=== PATIENT | male | born 1940 | race Caucasian/White ===

== ENCOUNTER 2018-07-25 11:09 | Day surgery (SDC) | payer MEDICARE, BC ==
[~2018-07-25] VITALS: Ht 172.7 cm; Wt 61.4 kg
[2018-07-25 11:26] LABS: HEMATOCRIT 48.4 % (42.0-54.0); HEMOGLOBIN 16.3 g/dL (13.5-17.5); MCH 31.8 pg (26.0-34.0); MCHC 33.7 g/dL (31.0-37.0); MCV 94.5 fL (80.0-100.0); MEAN PLATELET VOLUME 10.8 fL (7.4-10.4); RBC 5.12 10x6/uL (4.20-6.10); RDW 13.1 % (11.5-14.5); WBC 9.5 10x3/uL (4.8-10.8)
[2018-07-25] MEDS ORDERED: TIAZAC/CARDIZE240 M1 PO (13:05)
[2018-07-25] MEDS ORDERED: PRINIVIL20 MG PO (13:06)
[2018-07-25] MEDS ORDERED: NORCO 10-325 TA1 TAB PO (13:07)
[2018-07-25] MEDS ORDERED: LANOXIN125 MCG PO (13:09)
[2018-07-25] MEDS ORDERED: ULTRAM50 MG PO (13:09)
[2018-07-25] MEDS ORDERED: TYLENOL #4 W/CO1 TAB PO (13:09)
[2018-07-25] MEDS ORDERED: CALTRATE+D3 PL1 EACH PO (13:10)
[2018-07-25] MEDS ORDERED: ACETAMINOPHEN325 MG PO (13:11)
[2018-07-25] MEDS ORDERED: LIPITOR40 MG PO (13:11)
[2018-07-25] MEDS ORDERED: ZOFRAN ODT4 MG/UDTAB PO (13:12)
[2018-07-25] MEDS ORDERED: OMEPRAZOLE20 M1 PO (13:13)
[2018-07-25] MEDS ORDERED: FLOMAX0.4 MG PO (13:13)
[2018-07-25] MEDS ORDERED: ZANAFLEX2 M1 PO (13:14)
[2018-07-25] MEDS ORDERED: RANEXA500 MG PO (13:16)
[2018-07-25 13:36] VITALS: BP 126/70; Ht 172.7 cm; Wt 61.4 kg
== END 2018-07-25 14:45 | disposition home or self-care (01) ==
LOC: D.OPS 11:09
PROVIDERS: Anesthesiology
DX: R13.10 Dysphagia, unspecified (principal); Z53.09 Procedure and treatment not carried out because of other contraindication; Z01.812 Encounter for preprocedural laboratory examination